=== PATIENT | male | born 1980 | race Caucasian/White ===

== ENCOUNTER 2021-08-09 15:46 | Emergency (ER) | payer OTHER, SELFPAY ==
--- NOTE | 2021-08-09 16:01 | PC.NURSE ---
patient ambulatory to restroom without any complications
[2021-08-09 16:02] VITALS: BP 143/96; PULSE 86; RESP 16; TEMP 37.1; O2SAT 98; BMI 26.4
--- NOTE | 2021-08-09 16:16 | PC.NURSE ---
ED MD at
[2021-08-09 16:28] LABS: Microscopic, Urine URINE MICROSCOPIC (MICROSCOPIC)
[2021-08-09 16:33] LABS: Appearance,Urine CLEAR (Clear); Bilirubin,Urine Negative (Negative); Blood, Urine 2+ (Negative); Color,Urine YELLOW (Yellow); Glucose,Urine (UA) Negative (Negative); Ketones,Urine Negative (Negative); Leukocyte Esterase,Urine Negative (Negative); Nitrate,Urine Negative (Negative); Protein,Urine Negative (Negative); Urobilinogen,Urine 0.2 EU/dl (0.2)
[2021-08-09 16:56] LABS: Bacteria,Urine Trace /lpf; RBC,Urine 20-50 #/hpf (0-3); Squamous Epithelial Cell,Urine Occasional #/hpf (0-5); WBC,Urine Occasional #/hpf (0-3)
[2021-08-09 16:58] LABS: Basophils # 0.1 K/mm3 (0-0.2); Basophils % 1.1 % (0.1-2.0); Eosinophils # 0.1 K/mm3 (0.0-0.4); Eosinophils % 1.6 % (0.1-12.0); Hematocrit 51.6 % (42.0-52.0); Hemoglobin 16.9 g/dL (14.1-18.0); Lymphocytes # 2.2 K/mm3 (0.7-4.5); Lymphocytes % 25.3 % (10-50); Mean Corpuscular HGB Conc 32.8 g/dL (31.8-35.4); Mean Corpuscular Hemoglobin 32.4 pg (27.0-31.2); Mean Corpuscular Volume 98.8 fl (80-94); Mean Platelet Volume 8.8 fl (7.4-10.4); Monocytes # 0.6 K/mm3 (0.1-1.0); Monocytes % 7.3 % (1.7-9.3); Neutrophils # 5.7 K/mm3 (1.8-7.8); Neutrophils % 64.7 % (37.0-80.0); Platelet Count 235 K/mm3 (142-424); Red Blood Count 5.22 M/mm3 (4.60-6.20); Red Cell Distribution Width 13.8 % (11.5-17.5); White Blood Count 8.7 K/mm3 (4.8-10.8)
[2021-08-09 17:07] LABS: Albumin Level 4.8 g/dl (3.5-5.0); Albumin/Globulin Ratio 1.7 (1.1-1.8); Alkaline Phosphatase 59 U/L (38-126); Anion Gap 10.9 mEq/L (5-15); Bilirubin,Total 0.4 mg/dl (0.2-1.3); Blood Urea Nitrogen 15 mg/dl (9-20); Calcium 9.2 mg/dl (8.4-10.2); Carbon Dioxide 26 mmol/L (22.0-30.0); Chloride 107 mmol/L (98-107); Creatinine Clearance Estimated 175 mL/min (50-200); Estimated Glomerular Filt Rate 125 ml/min (>60); GFR (African American) 151 ML/MIN (>60); Globulin 2.8 g/dL (1.3-3.2); Glucose 82 mg/dl (74-100); Potassium 3.9 mmoL/L (3.5-5.1); Sodium 140 mmol/L (136-145); Total Protein,Serum 7.6 g/dl (6.3-8.2)
[2021-08-09 17:08] LABS: Alanine Aminotransferase 38 U/L (12-78); Aspartate Amino Transferase 27 U/L (17-59)
--- NOTE | 2021-08-09 17:52 | [facility].EDGENADL ---
ED Disposition Clinical Impression: Abdominal pain Qualifiers: Abdominal location: right lower quadrant Qualified Code(s): R10.31 - Right lower quadrant pain Disposition: Home, Self-Care Condition on Discharge: Good Instructions: DI for Acute Abdominal Pain Additional Instructions: Please follow-up with your primary care provider tomorrow. Referrals: Chi Cruz [Primary Care Provider] - - Critical Care Critical Care Time: No Attestation: On 08/09/21, the high probability of a clinically significant, sudden or life threatening deterioration of the following system(s) required my full and direct attention, intervention and personal management. The time I documented below is in addition to time spent performing reported procedures but includes the following listed in this critical care notation. Medical Decision Making - Medical Records Medical records reviewed: Yes: I reviewed the patient's medical records. - Andre Inquiry Pt receiving controlled substance: No Vital Signs: 08/09/21 16:02 08/09/21 18:08 Temperature 98.8 F 98 F Temperature Source Oral Oral Pulse Rate 74 Pulse Rate [Radial] 86 Respiratory Rate 16 16 Blood Pressure 131/75 Blood Pressure [Right Arm] 143/96 H Blood Pressure Mean [Right Arm] 111 Blood Pressure Position Sitting Blood Pressure Position [Right Arm] Sitting 02 Sat by Pulse Oximetry 98 Oxygen Delivery Method Room Air Room Air - Lab Data Lab Results 08/09/21 16:00: Urine Color Yellow, Urine Appearance Clear, Urine pH 7.0, Ur Specific [place] 1.010, Urine Protein Negative, Urine Glucose (UA) Negative, Urine Ketones Negative, Urine Blood 2+, Urine Nitrate Negative, Urine Bilirubin Negative, Urine Urobilinogen 0.2, Ur Leukocyte Esterase Negative, Urine RBC 20-50, Urine WBC Occasional, Ur Squamous Epith Cells Occasional, Urine Bacteria Trace 08/09/21 16:45: WBC 8.7, RBC 5.22, Hgb 16.9, Hct 51.6, MCV 98.8 H, MCH 32.4 H, MCHC 32.8, RDW 13.8, Plt Count 235, MPV 8.8, Neut % (Auto) 64.7, Lymph % (Auto) 25.3, [place] % (Auto) 7.3, Eos % (Auto) 1.6, Baso % (Auto) 1.1, Neut # (Auto) 5.7, Lymph # (Auto) 2.2, [place] # (Auto) 0.6, Eos # (Auto) 0.1, Baso # (Auto) 0.1 08/09/21 16:45: Sodium 140, Potassium 3.9, Chloride 107, Carbon Dioxide 26, Anion Gap 10.9, BUN 15, Creatinine 0.70, Estimated Creat Clear 175, Estimated GFR 125, Est GFR ( Amer) 151, Glucose 82, Calcium 9.2, Total Bilirubin 0.4, AST 27, ALT 38, Alkaline Phosphatase 59, Total Protein 7.6, Albumin 4.8, Globulin 2.8, Albumin/Globulin Ratio 1.7 Result diagrams: 08/09/21 16:45 08/09/21 16:45 Orders (Tests/Meds): ED MEDICATIONS Discontinued Medications Generic Name Dose Route Start Last Admin Trade Name Freq PRN Reason Stop Dose Admin Hydromorphone HCl 0.5 mg 08/09/21 19:12 08/09/21 17:50 Hydromorphone 2mg/Ml Syringe IV 08/09/21 19:13 0.5 mg ONCE ONE Administration Medical Decision Narrative: Patient is a 41-year-old male presents the ED today for further evaluation of epigastric abdominal pain, nausea, poor p.o. intake. Patient is well-appearing on initial evaluation, no acute distress, abdominal exam is consistent with epigastric abdominal pain, no Chiu sign, no McBurney's point tenderness, no fevers, and exam findings not consistent with acute appendicitis, with no local peritonitis. Patient's abdominal pain during my exam has radiated somewhat to the mid abdomen, but exam is not concerning enough for CT imaging at this time, I have ordered CBC CMP given pain medication with 0.5 mg IV dilaudid. Labs not show any evidence of acute liver injury, no acute kidney injury, no anemia or elevated white blood cell count, patient reassessed and remains well-appearing, advised to take Protonix [id number], and return to the ED with any new or worsening symptoms and follow-up with primary care. I stressed the importance of following up with his primary care if he has any severe or worsening abdominal pain
[2021-08-09 18:08] VITALS: BP 131/75; PULSE 74; RESP 16; TEMP 36.6; O2SAT 98
== END 2021-08-09 18:09 | disposition home or self-care (01) ==
PROVIDERS: Emergency Provider Student in an Organized Health Care Education/Training Program; PCP Pediatrics
DX: R10.31 Right lower quadrant pain (principal); R10.13 Epigastric pain
CPT/HCPCS: 80053; 81001; 85025; 96374; 99283

== ENCOUNTER 2023-10-11 00:38 | Emergency (ER) | payer OTHER, SELFPAY ==
[2023-10-11 00:48] VITALS: BP 154/110; PULSE 76; RESP 18; TEMP 36.8; O2SAT 98; BMI 25.0
--- NOTE | 2023-10-11 00:53 | ED_ITS ---
Discharge Plan Disposition Patient Disposition: Home, Self-Care Condition: Good Prescriptions Prescriptions: New amoxicillin-pot clavulanate 875-125 mg tablet 1 tab PO BID Qty: 20 0RF Referrals Follow up/Referrals: Marleen Ortiz MD [Primary Care Provider] - See instructions Activity Restrictions/Add. Instructions Additional Instructions/Restrictions: You were evaluated in the ER. You are appropriate for discharge at this time. Take the prescribed antibiotics as directed, do not skip doses, do not stop taking them early. Use the dental balls as needed for pain, you can use up to 1 every hour, do not sleep with these in. Take Tylenol and ibuprofen if needed for pain, do not exceed the recommended doses on the bottles. Drink a full glass of water and eat a snack anytime you take those medications. Follow-up with the dentist as scheduled as soon as possible. Return to the ER with new, worsening, or otherwise concerning symptoms. Clinical Impressions Clinical Impression: Abscess, dental Discharge ED Provider: Rebecca Rowland Adult HPI General Chief complaint: Dental/Oral Stated complaint: broken tooth, swelling, severe pain Time Seen by Provider: 10/11/23 00:43 Mode of Arrival: Ambulatory Source of Information: Patient Limitations: No Limitations Description of Symptoms (Recalled from ER Triage Doc. by RN): pt ambulatoiry to ED with c/o dental pain on left upper side. pt reports he was eating a jolly rancher 2 days ago and broke a crown off of his tooth and think he broke his tooth as well. pt reports he has a dentist appt tomorrow but the pain has become unbearable which prompted him to come to ED. History of Present Illness HPI narrative: 43-year-old male presents to the ER with complaints of dental pain on the left upper side. Reportedly he ate a [place] rancher 2 days ago and broke the crown off his tooth and is concerned he may have broken the tooth as well. He has a dental appointment tomorrow but pain and swelling on the left upper part of his mouth become unbearable. He presented to the ER hoping for relief from the pain. Patient states he is taken Tylenol. No fever, able to open the mouth, swallow, no difficulty breathing. Related Data Previous Rx's Medication Instructions Recorded amoxicillin 875 mg-potassium 1 tab PO BID #20 tabs 10/11/23 clavulanate 125 mg tablet Allergies Allergy/AdvReac Type Severity Reaction Status Date / Time tramadol [TRAMADOL] Allergy Unknown Verified 10/11/23 00:56 [facility] Disclaimer: The information contained in this section may have been updated after the patient was seen, as this information can be updated by other users. Social History Smoking Status: Current every day smoker alcohol intake: never current occupational status: other Travel in the last 8 weeks: None ROS Obtained: Yes All systems reviewed & no additional complaints except as documented Constitutional Constitutional: Denies chills, Denies fever(s), Denies headache(s) and Denies weakness Eyes Eyes: Denies change in vision ENT Ears, Nose, Mouth, and Throat: Reports dental pain, Denies dizziness, Denies headache(s), Denies nasal congestion and Denies sore throat Cardiovascular Cardiovascular: Denies chest pain, Denies dyspnea and Denies leg edema Respiratory Respiratory: Denies cough and Denies dyspnea Gastrointestinal Gastrointestingal: Denies constipation, diarrhea, nausea or vomiting Genitourinary Male Genitourinary: Denies difficulty urinating Musculoskeletal Musculoskeletal: Denies arthralgias, Denies myalgias, Denies numbness and Denies tingling Integumentary/Breasts Skin/Breast: Denies change in pigmentation Neurologic Neurologic: Denies dizziness, Denies headache(s), Denies numbness, Denies tingling and Denies weakness Physical Exam General General appearance: alert and in no apparent distress Head Head exam: atraumatic Eye Eye exam: Present PERRL and EOMI ENT ENT exam: Present mucous membranes moist and other (Swelling along the left maxillary teeth. Multiple fractured teeth, poor dentition. ) Expanded ENT Exam Mouth exam: Present other (No submandibular or sublingual swelling, no trismus) Comment: Obvious dental abscess around the base of tooth 12/13, these teeth have caries/fractures Neck Neck exam: Present normal inspection and full ROM; Absent lymphadenopathy Chest Chest inspection: Present symmetric chest wall rise Respiratory Respiratory exam: Absent respiratory distress or stridor Cardiovascular Cardiovascular exam: Present regular rate and normal rhythm Extremities Exam Extremities exam: Present full ROM Neurological Exam Neurological exam: Present alert and oriented X3; Absent motor sensory deficit Psychiatric Psychiatric exam: Present normal affect and normal mood Skin Skin exam: Present warm and dry Medical Decision Making Andre Inquiry Pt receiving controlled substance: No Vital Signs: 10/11/23 00:48 10/11/23 00:56 Temperature 98.2 F Temperature Source Oral Pulse Rate 80 Pulse Rate [Right Radial] 76 Respiratory Rate 18 Blood Pressure [Left Arm] 154/110 H Blood Pressure Mean [Left Arm] 124 Blood Pressure Source [Left Arm] Automatic Cuff Blood Pressure Position [Left Arm] Sitting 02 Sat by Pulse Oximetry 98 Oxygen Delivery Method Room Air Orders (Tests/Meds): ED MEDICATIONS Discontinued Medications Generic Name Dose Route Start Last Admin Trade Name [place] PRN Reason Stop Dose Admin Amoxicillin/Clavulanate Potassium 1 each 10/11/23 00:58 10/11/23 01:34 Amoxicillin/Clavulanate Potassium 875/125mg Tablet PO 10/11/23 00:59 1 each ONCE ONE Administration Benzocaine/Butamben/Tetracaine HCl 1 gm 10/11/23 00:52 10/11/23 00:56 Tetracaine/Benzocaine/Butamben 56 Gm [place] TP 10/11/23 00:53 1 gm ONCE ONE Administration Lidocaine HCl 15 ml 10/11/23 00:52 10/11/23 00:56 Lidocaine 2% Viscous [place] 15ml Udc PO 10/11/23 00:53 15 ml ONCE ONE Administration Oxycodone HCl 5 mg 10/11/23 00:49 10/11/23 01:02 Oxycodone 5mg Immediate Release Tablet PO 10/11/23 00:50 5 mg ONCE ONE Administration Medical Decision Narrative: In summary, this 43-year-old male presents to the emergency department today with dental pain and swelling. On initial evaluation patient is hemodynamically stable, afebrile, he has obvious dental abscess with poor dentition in the left maxillary molars. Differential diagnosis includes but is not limited to gingivitis, dental fracture, dental abscess. Patient is receiving 1 dose of oral oxycodone, dental balls have been applied. Incision and drainage of dental abscess was performed, see procedure note for details. Patient was prescribed Augmentin for outpatient management. He already has follow-up with dentistry tomorrow. He was instructed to take Tylenol and ibuprofen as well as use the dental balls if needed. Patient was given instructions on symptomatic management, follow up instructions, and return precautions for the emergency department. Patient indicated understanding and was discharged in stable condition. Procedures Abscess I/D Site: oral (Patient provided verbal and written consent) Side (if applicable): left Local Anesthetic: other anesthetic (topical dental balls) Technique: incised with #11 blade Irrigation: Yes (20mL saline) Packing used?: none Complications: other (NO complications, copious purulent material expressed from the abscess, patient tolerated procedure well) Critical Care Critical Care Time Critical Care Time: No
[2023-10-11 00:56] VITALS: PULSE 80
[2023-10-11] MEDS: LIDOCAINE 2% VISCOUS SOL 15ML UDC 15 ML PO (00:56)
[2023-10-11] MEDS: TETRACAINE/BENZOCAINE/BUTAMBEN 56 GM SPRAY TP (00:56)
[2023-10-11] MEDS: OXYCODONE 5MG IMMEDIATE RELEASE TABLET 5 MG PO (01:02)
[2023-10-11] MEDS: AMOXICILLIN/CLAVULANATE POTASSIUM 875/125MG TABLET 1 EACH PO (01:34)
[2023-10-11 01:46] VITALS: BP 142/102; PULSE 69; RESP 18; TEMP 36.7; O2SAT 96
== END 2023-10-11 01:47 | disposition home or self-care (01) ==
PROVIDERS: Emergency Provider Emergency Medicine; PCP Family Medicine
DX: K04.7 Periapical abscess without sinus (principal); F17.210 Nicotine dependence, cigarettes, uncomplicated
CPT/HCPCS: 99283